=== PATIENT | female | born 1975 | race Two or more races ===

== ENCOUNTER 2022-09-02 13:26 | Emergency (ER) | payer MEDICAID ==
[~2022-09-02] VITALS: Ht 157.5 cm; Wt 69.4 kg
[2022-09-02 14:00] VITALS: BP 104/56
[2022-09-02 14:57] LABS: Urine Bacteria NONE SEEN /hpf (None Seen); Urine Blood 2+ /uL (Negative); Urine Specific Gravity 1.019 (1.001-1.035); Urine WBC 10 /hpf (0 - 5)
[2022-09-02] MEDS ORDERED: ACETAMINOPHEN 500 MG TAB PO ONE (15:45)
[2022-09-02] MEDS ORDERED: ONDA-144 PO (16:12)
[2022-09-02] MEDS ORDERED: SUMA50TA2 PO (16:12)
== END 2022-09-02 16:00 | disposition home or self-care (01) ==
LOC: ER 13:26
DX: G43.909 Migraine, unspecified, not intractable, without status migrainosus (principal); M54.2 Cervicalgia
CPT/HCPCS: 70450; 81001